=== PATIENT | female | born 1950 | race Caucasian/White ===

== ENCOUNTER 2016-12-05 16:05 | Emergency (ER) | payer OTHER ==
[~2016-12-05] VITALS: Ht 162.6 cm; Wt 59.0 kg
[~2016-12-05 16:05] MED LIST: ALBU8.5H3 INH; BIOT25004 PO; DOXY100C2 PO; FLUT1AER INH; LEVO750T26 PO; NITR100C57 PO; SOLI10TA PO; VALA500T4 PO; Will bring list DOS
[2016-12-05 16:31] VITALS: BP 146/85
[2016-12-05] MEDS ORDERED: LIDOCAINE 1%, 20ML ONE (16:48)
[2016-12-05] MEDS ORDERED: DIPH,PERTUSS(ACELL),TET VAC/PF 0.5 ML IM-VACC ONE ×2 (16:57→17:00)
[2016-12-05] MEDS ORDERED: L.E.T SOLUTION TP ONE ×2 (17:00→17:18)
[2016-12-05] MEDS ORDERED: MICROFIBRILLAR COLLAGEN 1 GM TP ONE (17:00)
[2016-12-05] MEDS ORDERED: MICROFIBRILLAR COLLAGEN 0.5GM/PACK TP ONE (17:00)
[2016-12-05] MEDS ORDERED: LIDOCAINE 1%, 20ML SQ ONE (17:00)
== END 2016-12-05 18:47 | disposition home or self-care (01) ==
LOC: ED 18:41
DX: S61.211A Laceration without foreign body of left index finger without damage to nail, initial encounter (principal); G89.11 Acute pain due to trauma; W26.0XXA Contact with knife, initial encounter; Y93.G3 Activity, cooking and baking; Y92.090 Kitchen in other non-institutional residence as the place of occurrence of the external cause; Y99.8 Other external cause status
CPT/HCPCS: 90471; 90715

== ENCOUNTER → 2018-05-20 | Outpatient (CLI) | payer MEDICARE, OTHER ==
[~2018-05-20] MED LIST changes: -ALBU8.5H3 INH; +ALBU8.5H8 INH; -BIOT25004 PO; +BIOT25005 PO; -SOLI10TA PO; +SOLI10TA2 PO
== END | disposition home or self-care (01) ==
LOC: CFH 08:27
PROVIDERS: ATTEND Nurse Practitioner
DX: R42 Dizziness and giddiness (principal)
CPT/HCPCS: 70450

== ENCOUNTER → 2019-07-20 | Outpatient (CLI) | payer MEDICARE, OTHER | END | disposition home or self-care (01) | LOC: CFH 13:38 | PROVIDERS: ATTEND Licensed Practical Nurse | DX: N64.4 Mastodynia (principal) | CPT/HCPCS: 76642; 77066; G0279 ==

== ENCOUNTER → 2019-08-27 | Outpatient (CLI) | payer MEDICARE, OTHER | END | disposition home or self-care (01) | LOC: CFH 10:07 | PROVIDERS: ATTEND Nurse Practitioner | DX: R05 Cough (principal) | CPT/HCPCS: 71046 ==

== ENCOUNTER → 2020-05-31 | Outpatient (CLI) | payer MEDICARE, OTHER ==
[~2020-05-31] MED LIST changes: +GADOTERATE 7.5 MMOL/15 ML VIAL ONE
== END | disposition home or self-care (01) ==
LOC: RAD 07:38
PROVIDERS: ATTEND Nurse Practitioner
DX: R16.0 Hepatomegaly, not elsewhere classified (principal); K76.0 Fatty (change of) liver, not elsewhere classified
CPT/HCPCS: 74183; A9575

== ENCOUNTER → 2020-06-08 | Outpatient (CLI) | payer MEDICARE, OTHER ==
[~2020-06-08] MED LIST changes: -GADOTERATE 7.5 MMOL/15 ML VIAL ONE
== END | disposition home or self-care (01) ==
LOC: CFH 12:40
PROVIDERS: ATTEND Internal Medicine Gastroenterology
DX: R16.0 Hepatomegaly, not elsewhere classified (principal); D49.0 Neoplasm of unspecified behavior of digestive system; R94.5 Abnormal results of liver function studies
CPT/HCPCS: 76700

== ENCOUNTER 2021-03-29 09:11 | Outpatient (CLI) | payer MEDICARE, OTHER | END 2021-03-29 23:59 | disposition home or self-care (01) | LOC: CFH 09:11 | PROVIDERS: ATTEND Nurse Practitioner Family | DX: R94.2 Abnormal results of pulmonary function studies (principal) | CPT/HCPCS: 71250 ==